=== PATIENT | female | born 1985 | race Two or more races ===

== ENCOUNTER 2021-11-18 14:30 | Emergency (ER) | payer OTHER ==
[~2021-11-18] VITALS: Ht 167.6 cm; Wt 65.8 kg
[2021-11-18] MEDS ORDERED: CEFUROXIME500 MG PO (17:35)
== END 2021-11-18 18:06 | disposition home or self-care (01) ==
LOC: ER 14:30
DX: N39.0 Urinary tract infection, site not specified (principal); R31.9 Hematuria, unspecified